=== PATIENT | female | born 1955 | race Caucasian/White ===

== ENCOUNTER 2023-10-05 09:24 | Day surgery (SDC) | payer OTHER ==
[~2023-10-05] VITALS: Ht 157.5 cm; Wt 61.4 kg
[2023-10-05] MEDS ORDERED: NO HOME MEDS (12:25)
[2023-10-05 12:30] VITALS: BP 138/71; PULSE 67; RESP 21
[2023-10-05] MEDS ORDERED: fentaNYL/PF 50MCG/1 ML 2ML syringe ONE (13:22)
[2023-10-05] MEDS ORDERED: MIDAZolam 1 MG/ML 5ML VIAL ONE (13:23)
[2023-10-05] MEDS ORDERED: diphenhydrAMINE 50 mg/ml inj ONE (13:23)
[2023-10-05 14:19] VITALS: BP 126/67; PULSE 75; RESP 23; O2SAT 100
[2023-10-05 14:29] VITALS: BP 125/58; PULSE 63; RESP 12; O2SAT 99
[2023-10-05 14:39] VITALS: BP 101/52; PULSE 60; RESP 16; O2SAT 97
[2023-10-05 14:49] VITALS: BP 132/68; PULSE 71; RESP 14; O2SAT 97
== END 2023-10-05 15:20 | disposition home or self-care (01) ==
LOC: GI LAB 09:24
PROVIDERS: ATTEND Internal Medicine Gastroenterology
DX: Z12.11 Encounter for screening for malignant neoplasm of colon (principal); D12.2 Benign neoplasm of ascending colon; D12.8 Benign neoplasm of rectum; K57.30 Diverticulosis of large intestine without perforation or abscess without bleeding; Z90.710 Acquired absence of both cervix and uterus; Z80.0 Family history of malignant neoplasm of digestive organs
CPT/HCPCS: 45385; 99152; 99153; J2250; J3010; J7030; Z7512; A4620; C1889; J1200

== ENCOUNTER 2024-10-21 19:03 | Emergency (ER) | payer MEDICARE ==
[~2024-10-21] VITALS: Ht 154.9 cm; Wt 57.5 kg
[~2024-10-21 19:03] MED LIST: NO HOME MEDS
[2024-10-21 19:38] VITALS: BP 141/78; PULSE 100; RESP 16; O2SAT 97
--- NOTE | 2024-10-21 21:01 | RADIOLOGY REPORT ---
CLINICAL INDICATION: FOOT PAIN TECHNIQUE: 3 radiographic views of the left foot were obtained. Comparison: None FINDINGS/IMPRESSION: There is no evidence of acute fracture or dislocation. There is diffuse demineralization. The visualized joint space is well maintained. The alignment is anatomical. There is no radiopaque foreign body.
[2024-10-21 22:22] LABS: BILIRUBIN,URINE NEGATIVE (Neg); CLARITY,URINE CLEAR (Clear); COLOR,URINE YELLOW (Yellow); GLUCOSE, URINE NEGATIVE (Neg); KETONES,URINE NEGATIVE (Neg); LEUKOCYTE ESTERASE ,URINE TRACE (Neg); OCCULT BLOOD,URINE NEGATIVE (Neg); PROTEIN,URINE NEGATIVE (Neg); UROBILINOGEN,URINE 0.2 E.U/dL (0.2-1.0)
[2024-10-21 22:31] LABS: UA COLLECTION TYPE NON-SPECIFIED
[2024-10-21 22:35] LABS: BACTERIA,URINE 3+ /HPF (Neg); NITRITES, URINE POSITIVE (Neg); RBC,URINE NONE SEEN /HPF (0-2); SQUAMOUS EPITHELIAL CELL,UR MODERATE /LPF (FEW); WBC,URINE 0-4 /HPF (0-4)
[2024-10-21 22:36] LABS: TRANSITIONAL EPI CELLS,URINE FEW /HPF
[2024-10-21] MEDS ORDERED: NITR100C PO (22:43)
--- NOTE | 2024-10-21 22:44 | Physician Documentation ---
History of Present Illness ~ Chief Complaint: Foot pain Stated Complaint: FOOT PAIN Time Seen by MD: 21:11 OK to notify your PCP?: Yes Source: patient Mode of Arrival: POV Exam Limitations: no limitations GISSELLE Zarco is a 69-year-old female with 2 complaints. The 1st is that her left foot for the past 5 months has periods of discoloration and is cool to the touch. She states that she mentioned this to her primary care provider and was told to come to the emergency department to have it checked out. She mentions that she does have pain in that foot but when she is laying flat in bed the color returns and the pain goes away in the morning. As soon as she puts her leg down off the side of the bed the pain returns and so does the discoloration. She mentions that her foot used to be very purple in color but seems to be improving to a reddish tone. She states that 5 months ago she broke her heel but repeat x-rays of showed that it is healed up completely with no complications. Her 2nd complaint is that she has been fighting a UTI for the past 8 days. She was given doxycycline and is currently on day 8 of a 10 day course. Today she received a call stating that her urine culture was positive for E coli. She is still having burning with urination and would like to have her urine checked. She also mentions having some blood noted in her urine. He states that a prescription was supposed to have been sent for a 2nd antibiotic to her pharmacy but it was not and she would like to have this done. Tetanus witin 5 years: No Medication Reconciliation Allergies: Coded Allergies: Penicillins (Unverified Allergy, Severe, 10/21/24) DIFFICULTY BREATHING Scheduled Nitrofurantoin Macrocrystal (Nitrofurantoin), 1 CAP PO Q12H Miscellaneous Medications Home Med List (No Home Medications), (Reported) Review of Systems All Other Systems at this time: Reviewed and Negative Physical Exam Vital Signs: RN Vital Signs have been reviewed: Yes, Temperature: 99.2, Source: Oral, Heart Rate: 100, Respiratory Rate: 16, BP: 141/78, Pulse Oximetry: 97, Weight: 57.450 Oxygen Flow Rate: 0 Pulse Oximetry Reflects: adequate oxygenation Physical Exam General: Alert, no apparent distress. HEENT: PERRL, EOMI, no injection, moist mucous membranes. Neck: Full range of motion. Respiratory: Lungs clear, no respiratory distress. Chest: No accessory muscle use. Cardiovascular: Regular rate and rhythm, no murmurs. Gastrointestinal: Soft, nontender, nondistended. Bowels sounds present. Extremities: Normal range of motion, no deformity. Left foot pulses 2+, good CSM, nontender to palpation. Left foot appears slightly mottled when compared to the right foot, but is warm to the touch. Neurologic: Oriented x4. Psychiatric: Normal mood and affect. Skin: Normal color, warm and dry. No edema, no ecchymosis. Progress Results/Orders Reviewed/noted all lab results: Yes Results/Orders Orders - STELLA RICHEY Cult Urine + [address] (10/21/24 22:35) Completed Orders - STELLA RICHEY Ua W/Microscopic, Cult If Ind (10/21/24 22:00) Vital Signs 10/21/24 10/21/24 19:38 23:13 Temp 99.2 99.2 Pulse 100 Resp 16 B/P (MAP) 141/78 Pulse Ox 97 O2 Flow Rate 0 Laboratory Tests Test 10/21/24 22:00 Urine Specimen Description Non-specified Urine Color Yellow Urine Clarity Clear Urine pH 6.0 Urine Specific [place] >=1.030 Urine Protein Negative Urine Glucose (UA) Negative Urine Ketones Negative Urine Occult Blood Negative Urine Nitrite Positive H Urine Bilirubin Negative Urine Urobilinogen 0.2 Urine Leukocyte Esterase Trace H Urine RBC None seen Urine WBC 0-4 Urine Squamous Epithelial Cells Moderate Urine Transitional Epithelial Cells Few Urine Bacteria 3+ Urine Culture Indicated Indicated Volume Urine Centrifuged 10 ml Urine Comment Microbiology Date/Time Source Procedure Growth Status 10/21/24 22:35 Urine Nonspecified Urine Culture - Preliminary Culture received. Resulted EKG/XRAY/CT/US/VASC/MRI Bone/Soft Tissue X-Ray (Ext.) : Additional Comment Left ankle x-ray as interpreted by me; no joint effusion, no acute fracture, no soft tissue swelling, no dislocation, or foreign body. Medical Decision Making Findings Carolee is a 69-year-old female with a urinary tract infection which has been receiving the days of doxycycline. She received a call that it was positive for E coli. We did our own urinalysis and she is still positive for UTI. I prescribed nitrofurantoin and advised her to continue taking her doxycycline for the next 2 days. For her left foot that is been having abnormal color for the past 5 months after having a left broken heel, I advised that she would need an outpatient vascular Doppler venous and arterial study of your left leg, but this does not need done in the emergency setting. Her foot is warm to the touch, nontender, has good pulses, good CSM and this is likely a chronic vascular issue. She agrees with this plan. I advised her to please take all antibiotics as prescribed. Please finish your doxycycline prescription as well. Follow up with her primary care provider in the next 3 days. Please return here for any new or worsening symptoms. General Diff Dx:Considerations: Include: Fracture, Malunion, Neurovascular injury Departure Disposition: HOME / SELF CARE / HOMELESS Impression: Primary Impression: UTI (urinary tract infection) Additional Impression: Foot pain Condition: Stable Discharge Instructions: Urinary Tract Infection, Adult Additional Instructions: Please take all antibiotics as prescribed. Please finish your toxic prescription as well. Follow up with her primary care provider in the next 3 days. I would recommend you getting an outpatient vascular Doppler venous and arterial study of your left leg. Please return here for any new or worsening symptoms. Referrals: NO PRIMARY CARE PROVIDER (PCP) Prescriptions Nitrofurantoin Macrocrystal (Nitrofurantoin) 100 Mg Capsule 1 CAP PO Q12H for 7 Days, #14 CAP 0 Refills Prov: STELLA RICHEY 10/21/24 Education Educated: Patient Educated regarding: diagnosis, treatment, prognosis, need for follow up Signature Scribe Signature: . Attestation: Scribed for Stella Richey by Stella Morelos NP . 10/22/24 00:07 STELLA RICHEY October 21, 2024 22:44
[2024-10-21 23:13] VITALS: TEMP 99.2
== END 2024-10-21 23:18 | disposition home or self-care (01) ==
LOC: ER 19:03
DX: N39.0 Urinary tract infection, site not specified (principal); Z88.0 Allergy status to penicillin; M79.672 Pain in left foot
CPT/HCPCS: 73630; 81001; 87088; 99284

== ENCOUNTER 2024-10-31 09:35 | Emergency (ER) | payer MEDICARE ==
[~2024-10-31] VITALS: Ht 157.5 cm; Wt 57.0 kg
[~2024-10-31 09:35] MED LIST changes: +NITR100C PO
[2024-10-31] MEDS ORDERED: iohexol 350MG/ML 100ml bottle IV ONE ×2 (12:46→12:47)
--- NOTE | 2024-10-31 13:06 | Physician Documentation ---
History of Present Illness ~ Chief Complaint: Foot pain Stated Complaint: L FOOT PAIN Time Seen by MD: 13:21 Source: patient Mode of Arrival: POV Exam Limitations: no limitations HPI 69 y/o female with left foot pain x 4.5months. States pain started after she broke her foot and states "the bone in my heel has healed but the more I try to use it the worse it gets, I can't sleep at night." Patient states "I am not sure if I have a blood clot or not." Patient also reports back pain which has been going on for 4months as well since she fell as she reports her fall resulted in a "broken back." Patient is also wondering if she has a UTI and if that could be causing her back pain. Patient was seen here recently and diagnosed and treated for UTI. No pain with urination. No chest pain, sob. Tetanus witin 5 years: No Medication Reconciliation Allergies: Coded Allergies: Penicillins (Unverified Allergy, Severe, 10/21/24) DIFFICULTY BREATHING Scheduled Nitrofurantoin Macrocrystal (Nitrofurantoin), 1 CAP PO Q12H Miscellaneous Medications Home Med List (No Home Medications), (Reported) Past Medical History Past Medical History: No Pertinent History Review of Systems All Other Systems at this time: Reviewed and Negative Physical Exam Vital Signs: Temperature: 97.9, Source: Temporal, Heart Rate: 86, Respiratory Rate: 18, BP: 137/71, Pulse Oximetry: 97, Weight: 56.950 Oxygen Flow Rate: 0 Physical Exam GENERAL: Alert, no acute distress. HEENT: NCAT, EOMI, PERRL, normal oropharynx, moist oral mucosa. NECK: Supple, trachea midline. CARDIAC: Regular rate and rhythm, no murmurs, rubs, or gallops. Equal distal pulses. LEFT lower extremity edema trace edema with ttp at ankle joint, cap r efill less than 2 seconds. Some ttp at left calf muscle. RESPIRATORY: Equal breath sounds, clear to auscultation bilaterally, no respiratory distress. MUSCULOSKELETAL: Normal range of motion of left ankle joint. AMBULATING WITH WALKER WITH A SLIGHT LIMP, FAVORING RIGHT LEG. NEUROLOGICAL: Awake, alert, and oriented x 3. SKIN: Warm/dry, no pallor, no rash. PSYCH: Alert and appropriate. Affect congruent with mood. Speech is clear. Good eye contact. Progress Results/Orders Results/Orders Orders - TALISHA BLACKMAN Vl Venous (10/31/24 13:27) Completed Orders - TALISHA BLACKMAN Vl Venous (10/31/24 13:27) Vital Signs 10/31/24 10/31/24 10/31/24 10/31/24 09:39 13:01 13:56 13:57 Temp 97.9 Pulse 86 85 89 Resp 18 18 18 B/P (MAP) 137/71 156/86 (109) 126/68 (87) Pulse Ox 97 98 97 O2 Flow Rate 0 0 0 10/31/24 14:28 Temp 98.0 Pulse 83 Resp 16 B/P (MAP) 134/70 Pulse Ox 100 Medical Decision Making General Diff Dx:Considerations: Include: Abrasion, Contusion, Fracture, Hematoma, Laceration, Malunion, Neurovascular injury, Open fracture, Sprain, Ulcer, Other Departure Impression: Primary Impression: Leg pain, left Additional Impression: Back pain Qualified Codes: M54.50 - Low back pain, unspecified Condition: Stable Additional Instructions: F/U WITH PCP FOR FURTHER EVALUATION OF YOUR LEG PAIN AND SWELLING BUT THERE IS NO EVIDENCE OF INFECTION OR BLOOD CLOT. CAUSE IS UNCLEAR, BUT NO EVIDENCE OF EMERGENT ISSUE AT THIS TIME, BUT PLEASE RETURN TO ER IF NEW CONCERNING SYMPTOMS OCCUR. Referrals: NO PRIMARY CARE PROVIDER (PCP) Education Educated: Patient Educated regarding: diagnosis, treatment, need for follow up Additional Comment Medical Screen Exam 69 y/o female with left foot pain x 4.5months. States pain started after she broke her foot and states "the bone in my heel has healed but the more I try to use it the worse it gets, I can't sleep at night." Patient states "I am not sure if I have a blood clot or not." Patient also reports back pain which has been going on for 4months as well since she fell as she reports her fall resulted in a "broken back." Patient is also wondering if she has a UTI and if that could be causing her back pain. Patient was seen here recently and diagnosed and treated for UTI. No pain with urination. PEx: NAD, ambulating in and out of triage room without distress. No respiratory distress. a/p: Left foot pain, Subacute Low back pain, Subacute Pain consistent with MSK etiology. Pain is in heel and foot, not calf. Pain is not consistent with DVT but further evaluation will be done when we get a room available. Patient is stable to wait for room. The note accurately reflects work and decisions made by me.Talisha WEBER 10/31/24 13:06 Signature Scribe Signature: X Attestation: TALISHA PINEDA October 31, 2024 13:06
--- NOTE | 2024-10-31 14:26 | VASCULAR REPORT ---
Left lower extremity venous duplex Clinical History: Pain Comparison: None Technique: Duplex Doppler evaluation of the deep venous system of the left lower extremity from the common femor al vein to the popliteal vein including color Doppler and spectral/pulsed waveform analysis was perfo rmed. Findings: The common femoral vein demonstrates appropriate compressibility and waveform variability . There is compressibility/patency of the great saphenous vein at the proximal thigh . The femoral vein demonstrates appropriate compressibility and waveform variability . The deep femoral vein demonstrates appropriate compressibility and waveform variability . The popliteal vein demonstrates appropriate compressibility and waveform variability . There is normal compressibility at the tibioperoneal trunk. Impression: No left femoropopliteal venous thrombosis. Contralateral common femoral vein is patent.
[2024-10-31 14:28] VITALS: BP 134/70; PULSE 83; RESP 16; TEMP 98; O2SAT 100
== END 2024-10-31 14:33 | disposition home or self-care (01) ==
LOC: ER 09:36
DX: M79.672 Pain in left foot (principal); M54.9 Dorsalgia, unspecified
CPT/HCPCS: 93971; 99284; Q9967; 99285

== ENCOUNTER 2025-04-27 11:45 | Outpatient (CLI) | payer MEDICARE, OTHER ==
--- NOTE | 2025-04-27 12:50 | RADIOLOGY REPORT ---
Exam: US US NON VASCULAR Date: 04/27/2025 11:58 AM Clinical History: LOCALIZED SWELLING, MASS AND LUMP, LEFT UPPER LIMB Comparison: None Technique: Targeted sonographic evaluation of the soft tissues of the left axilla was obtained utilizing grayscale and color Doppler imaging. Findings: There is no evidence for drainable collection. There is no evidence for solid or cystic mass in the site. No vascular abnormalities identified at this site. IMPRESSION: No definite sonographic abnormality is identified in the soft tissues of the left axilla
== END 2025-04-27 23:59 | disposition home or self-care (01) ==
LOC: RAD 11:45
PROVIDERS: ATTEND Physician Assistant
DX: R22.32 Localized swelling, mass and lump, left upper limb (principal)
CPT/HCPCS: 76882